=== PATIENT | female | born 1945 | race Caucasian/White ===

== ENCOUNTER 2016-09-28 09:29 | Day surgery (SDC) | payer MEDICARE, OTHER ==
--- NOTE | ~2016-09-28 | EGD ---
EGD REPORT [facility] [address] [place] [address] NAME: BIRGIT ATKINS : [birth year] STATUS : REG [facility]#: [id number] AGE: 71 ADM/REG DATE : 09/28/16 MR#: [id number] REPORT SERV DATE: 09/28/16 DICTATED BY: JACINTO PANIAGUA DATE: 09/28/16 REPORT STATUS : Draft TRANSCRIBED BY: [employer] DATE: 09/28/16 [facility] Patient Name: Birgit Atkins Date of : 1945 Attending MD: JACINTO PANIAGUA, Procedure Date No Time: 09/28/2016 Procedure: ERCP Indications: Abnormal MRCP. Suspected distal bile duct lesion/filling defect Referring MD: Titi Lynn Medicines: Monitored Anesthesia Care Complications: No immediate complications. Estimated blood loss: None Procedure: Pre-Anesthesia Assessment: - ASA Grade Assessment: IV - A patient with severe systemic disease that is a constant threat to life. After obtaining informed consent, the scope was passed under direct vision. Throughout the procedure, the patient's blood pressure, pulse, and oxygen saturations were monitored continuously. The TJF Q180V [id number] was introduced through the mouth, and advanced to the duodenum and used to inject contrast into the bile duct. The ERCP was accomplished without difficulty. The patient tolerated the procedure well. Findings: The major papilla was flat. The bile duct was deeply cannulated with the short-nosed traction sphincterotome. Contrast was injected. I personally interpreted the bile duct images. Ductal flow of contrast was adequate. The main bile duct was diffusely dilated. The largest diameter was 12 mm. Biliary sphincterotomy was made with a traction (standard) sphincterotome using ERBE electrocautery. There was no post-sphincterotomy bleeding. The biliary tree was swept with a 9 mm balloon and 12 mm balloon starting at the upper third of the main bile duct. Nothing was found. Impression: - The major papilla appeared to be flat. - The entire main bile duct was dilated. Recommendation: - Return to previous diet. - Continue present medications. - Would follow clinically with LFT's assuming FNA negative. Suspect benign lesion. Procedure Code(s): --- Professional --- 68960, Endoscopic retrograde cholangiopancreatography EGD REPORT [address] 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 All rights reserved. The codes documented in this report are preliminary and upon incinerator plant general supervisor review may be revised to meet current compliance requirements. JACINTO PANIAGUA, 09/28/2016 1:40 PM Number of Addenda: 0 Note Initiated On: 09/28/2016 1:11 PM Scope Withdrawal Time 0 hours 0 minutes 0 seconds
--- NOTE | ~2016-09-28 | EGD ---
EGD REPORT [facility] [address] [place] [address] NAME: BIRGIT HAN : [birth year] STATUS : REG [facility]#: [id number] AGE: 71 ADM/REG DATE : 09/28/16 MR#: [id number] REPORT SERV DATE: 09/28/16 DICTATED BY: JACINTO PANIAGUA DATE: 09/28/16 REPORT STATUS : Draft TRANSCRIBED BY: [employer] DATE: 09/28/16 [facility] Patient Name: Birgit Han Date of : 1945 Attending MD: JACINTO PANIAGUA, Procedure Date No Time: 09/28/2016 Procedure: Upper EUS Indications: Suspected mass at the ampulla/papilla on MRCP Referring MD: Titi Lynn Complications: No immediate complications. Estimated blood loss: None. Procedure: Pre-Anesthesia Assessment: - ASA Grade Assessment: IV - A patient with severe systemic disease that is a constant threat to life. After obtaining informed consent, the endoscope was passed under direct vision. Throughout the procedure, the patient's blood pressure, pulse, and oxygen saturations were monitored continuously. The Endoscope was introduced through the mouth, and advanced to the second part of duodenum. Findings: Endosonographic Finding : An oval intramural (subepithelial) lesion was found in the ampulla/distal CBD. The lesion was hypoechoic. It measured 19 by 9 mm. Endosonographically, the lesion appeared to originate from within the bile duct or adjacent to the bile duct. The outer margins were well defined. Fine needle aspiration was performed. Color Doppler imaging was utilized prior to needle puncture to confirm a lack of significant vascular structures within the needle path. Six passes were made with the 22 gauge needle. Final cytology results are pending. There was no sign of significant endosonographic abnormality in the common bile duct. The pancreatic duct had a normal endosonographic appearance in the entire pancreas. The pancreatic duct measured up to 2.6 mm in diameter. No lymphadenopathy seen. There was no sign of significant endosonographic abnormality in the examined duodenum. Endosonographic images of the stomach were unremarkable. There was no sign of significant endosonographic abnormality in the esophagus. Impression: - An intramural (subepithelial) lesion was found in the ampulla. The lesion appeared to originate from within the intramural wall, but the wall layer could not be determined. The diagnosis is adenocarcinoma. EGD REPORT [address] [address] NAME: BIRGIT HAN : [birth year] [place]US : [place] [facility]#: [id number] AGE: 71 ADM/REG DATE : 09/28/16 MR#: [id number] REPORT SERV DATE: 09/28/16 DICTATED BY: JACINTO PANIAGUA DATE: 09/28/16 REPORT STATUS : Draft TRANSCRIBED BY: [employer] DATE: 09/28/16 - There was no sign of significant pathology in the common bile duct. - The pancreatic duct had a normal endosonographic appearance in the entire pancreas. The pancreatic duct measured up to 2.6 mm in diameter. - There was no sign of significant pathology in the examined duodenum. - Endosonographic images of the stomach were unremarkable. - There was no sign of significant pathology in the esophagus. Recommendation: - Return to previous diet. - Continue present medications. - Await cytology results. Given appearance suspicion relatively low for concerning lesion. Procedure Code(s): --- Professional --- 20487, Esophagogastroduodenoscopy, flexible, transoral; with transendoscopic ultrasound-guided intramural or transmural fine needle aspiration/biopsy(s) (includes endoscopic ultrasound examination of the esophagus, stomach, and either the duodenum or a surgically altered stomach where the jejunum is examined distal to the anastomosis) Diagnosis Code(s): --- Professional --- C24.1, Malignant neoplasm of ampulla of Vater R93.2, Abnormal findings on diagnostic imaging of liver and biliary tract CPT copyright 2013 [employer]. All rights reserved. The codes documented in this report are preliminary and upon restaurant worker review may be revised to meet current compliance requirements. JACINTO PANIAGUA, 09/28/2016 1:37 PM Number of Addenda: 0 Note Initiated On: 09/28/2016 12:27 PM Scope Withdrawal Time 0 hours 0 minutes 0 seconds [address] [place] [address]
[~2016-09-28 09:29] MED LIST: BC ARTHRITIS P1 EACH PO
[2016-09-28 10:14] LABS: BUN (BLOOD UREA NITROGEN) 16 MG/DL (6-23); CALCIUM, SERUM 8.6 MG/DL (8.5-10.4); CHLORIDE, SERUM 111 MMOL/L (96-112); CO2 (CARBON DIOXIDE) 23 MMOL/L (24-34); GFR AFRICAN AMERICAN 102 ML/MIN (>=60); GFR NON AFRICAN AMERICAN 88 ML/MIN (>=60); GLUCOSE, SERUM 74 MG/DL (60-99); POTASSIUM, SERUM 3.9 MMOL/L (3.5-5.3); SODIUM, SERUM 143 MMOL/L (135-148)
== END 2016-09-28 23:59 | disposition home or self-care (01) ==
LOC: DMU 09:29
PROVIDERS: Anesthesiology; Internal Medicine Gastroenterology
PROC: 0F798ZZ Dilation of Common Bile Duct, Via Natural or Artificial Opening Endoscopic (ICD-10-PCS; principal; 2016-09-28 11:00)
PROC: 0DB98ZX Excision of Duodenum, Via Natural or Artificial Opening Endoscopic, Diagnostic (ICD-10-PCS; 2016-09-28 11:00)
PROC: BD49ZZZ Ultrasonography of Duodenum (ICD-10-PCS; 2016-09-28 11:00)
DX: K83.9 Disease of biliary tract, unspecified (principal); Q44.0 Agenesis, aplasia and hypoplasia of gallbladder; Q44.1 Other congenital malformations of gallbladder; Q44.4 Choledochal cyst; Q44.5 Other congenital malformations of bile ducts; Q44.7 Other congenital malformations of liver; I11.0 Hypertensive heart disease with heart failure; F32.9 Major depressive disorder, single episode, unspecified; I50.33 Acute on chronic diastolic (congestive) heart failure; G89.29 Other chronic pain; J96.01 Acute respiratory failure with hypoxia; M19.90 Unspecified osteoarthritis, unspecified site; M54.5 Low back pain; F17.210 Nicotine dependence, cigarettes, uncomplicated; Z79.82 Long term (current) use of aspirin; Z98.890 Other specified postprocedural states
CPT/HCPCS: 74330; 80048; 88173; 88305; C1769; J2370; J2405; J2550; J2710; J3010; Q9967

== ENCOUNTER 2016-10-20 10:49 | Emergency (ER) | payer MEDICARE, OTHER ==
--- NOTE | ~2016-10-20 | CN ---
Consultation Report [facility] [address] [place]. [address] NAME: BIRGIT ATKINS : [birth year] STATUS : REG ER PAT#: [id number] AGE: 71 ADM/REG DATE : 10/20/16 MR#: [id number] REPORT SERV DATE: 10/20/16 DICTATED BY: LOBITO HICKMAN DATE: 10/20/16 REPORT STATUS : Draft TRANSCRIBED BY: [employer] DATE: 10/20/16 CONSULTATION DATE OF CONSULTATION: 10/20/2016 CHIEF COMPLAINT: Cough. HISTORY OF PRESENT ILLNESS: The patient is a 71-year-old white female, who presented to [facility] emergency room with complaints of cough, this has been going on for the last seven months. She also complained of back pain, which has been going on for the last two years. She has had spinal fusion in 1990 and she says that she is having difficulty walking, where she was walking using a walker, but now she is having some difficulty pushing off her hands, however she has not been taking any pain medication nor has she been treated for her back pain. She denies any fevers or chills. She says sometime back, she did have fever. She was treated for pneumonia at [facility] twice this year. She has not had a productive cough. She denies any other constitutional symptoms. REVIEW OF SYSTEMS: Otherwise, negative. PAST MEDICAL HISTORY: She claims to have chronic back pain. She claims to have aneurysm in her brain that has been followed, somewhere in [place], [place]. She has no history of hypertension, diabetes. She does not have lung disease, but according to her history, I would think she would have COPD. PAST SURGICAL HISTORY: Significant for spinal fusion and carpal tunnel syndrome. ALLERGIES: NO KNOWN DRUG ALLERGIES. HOME MEDICATIONS: Aspirin. SOCIAL HISTORY: She has been a smoker, one pack per day since she was age [age], that would give her a sixty plus pack per year smoking history. She was a heavy drinker, quit three months ago. She says now she occasionally drinks beer. She was drinking two pints of vodka per day. She denies any illicit substance abuse. FAMILY HISTORY: Reviewed with the patient, but noncontributory for this encounter. PHYSICAL EXAMINATION: GENERAL: White female, lying on a gurney, appears to be in no obvious respiratory distress. She is awake, alert. She is oriented. VITAL SIGNS: Blood pressure 140/85, temp is 98.7, pulse is 84, saturation of 94% on room air. HEENT: Head is normocephalic, atraumatic. Pupils are equal, round, and reactive to light. Consultation Report [facility] [address] [place]. [address] NAME: BIRGIT ATKINS : [birth year] STATUS : REG ER PAT#: [id number] AGE: 71 ADM/REG DATE : 10/20/16 MR#: [id number] REPORT SERV DATE: 10/20/16 DICTATED BY: LOBITO HICKMAN DATE: 10/20/16 REPORT STATUS : Draft TRANSCRIBED BY: GARRY DATE: 10/20/16 Extraocular muscles are intact. Sclerae anicteric. Conjunctivae normal. Oropharynx without lesion. Tongue protrusion midline. Uvula midline. NECK: Supple. No jugular venous distention. No carotid bruits or thyromegaly is appreciated. No lymphadenopathy in the neck is palpable. HEART: Regular rate and rhythm. No murmurs, rubs, or gallops are heard. PMI nondisplaced. LUNGS: Mild expiratory wheezing. No rales, rhonchi, or evidence of any focal consolidation. ABDOMEN: Morbidly obese, soft, nontender, good bowel sounds. No rebound, guarding, or organomegaly. EXTREMITIES: Without cyanosis, clubbing, or edema. Strength is equal and symmetrical in both lower extremities. Deep tendon reflexes are 2+. Sensory exam seems to be grossly intact as well. The patient is able to sit up and swing her legs over on the side of the stretcher. She does complain of some back pain when she does that. LABORATORIES: Electrolyte panel: Sodium 134, potassium 4.0, chloride 100, bicarb 25, BUN 4, creatinine 0.61, glucose of 77. Liver function studies are normal. White count is 5.1, hemoglobin of 14.1, hematocrit of 41, platelet count is 327,000, no left shift. Urinalysis is normal. IMAGING: Chest x-ray, PA and lateral, right lower lobe pneumonia. CTA of the chest, mild chronic changes of COPD with minimal right lower lobe infiltrate. Aorta normal in diameter. Heart size normal with no evidence of pericardial effusion. No axillary lymphadenopathy or chest wall masses are seen. Visualized portions of the upper abdomen were unremarkable. IMPRESSION: 1. Mild pneumonia. 2. Most likely chronic obstructive pulmonary disease. 3. Chronic back pain due to osteoarthritis and prior spinal fusion. 4. History of spinal stenosis and fusion. PLAN: The patient will be given p.o. steroids, p.o. antibiotics, albuterol, and Percocet for the above medical problems. She will follow up with the primary care physician. She was advised to quit smoking and she can be discharged from the emergency room. BARB/GARRY Lobito Hickman M.D. / [id number]
[2016-10-20 11:18] LABS: BASOPHILS 0.8 %; BASOPHILS ABSOLUTE 0.04 10/3/uL (0.0-0.16); EOSINOPHILS 1.4 %; EOSINOPHILS ABSOLUTE 0.07 10/3/uL (0.0-0.53); ER CBC TAT 0 Hrs 08 Mins; HEMATOCRIT 41.5 % (36.0-48.0); HEMOGLOBIN 14.1 g/dL (12.0-16.0); IMMATURE GRANULOCYTES 0.2 %; IMMATURE GRANULOCYTES ABSOLUTE 0.01 10/3/uL (0.0-0.11); MEAN CORPUSCULAR HEMOGLOB 31.2 pg (26.0-34.0); MEAN CORPUSCULAR VOLUME 91.8 fL (80-100); MEAN PLATELET VOLUME 8.8 fL (9.2-13.0); MONOCYTES 8.4 %; MONOCYTES ABSOLUTE 0.43 10/3/uL (0.21-1.20); NEUTROPHILS 54.2 %; NEUTROPHILS ABSOLUTE 2.79 10/3/uL (2.02-8.40); PLATELET COUNT 327 10/3/uL (150-400); RBC DISTRIBUTION WIDTH 15.8 % (12.0-16.0); RED CELL COUNT 4.52 10/6/uL (4.0-5.6); WHITE BLOOD CELLS 5.1 10/3/uL (4.5-10.5)
[2016-10-20 11:20] LABS: MANUAL DIFF NO %
[2016-10-20 11:28] LABS: ASCORBIC ACID (UR NOT ORDER) NEG (NEG); BILIRUBIN, URINE NEGATIVE (NEG); ER URINALYSIS TAT 0 Hrs 18 Mins; KETONE, URINE NEGATIVE (NEG); LEUKOCYTE ESTERASE(NOT OR NEG (NEG); NITRITE (URINE) NEG (NEG); WBC (NOT ORDERED) (RFLEX) < 1 (0-5)
[2016-10-20 11:31] LABS: A/G RATIO 0.9 (0.7-1.9); ALBUMIN 4.1 G/DL (3.5-5.0); ALKALINE PHOSPHATASE 123 U/L (45-117); CALCIUM, SERUM 9.2 MG/DL (8.5-10.4); CO2 (CARBON DIOXIDE) 25 MMOL/L (24-34); CREATININE 0.61 MG/DL (0.55-1.02); GFR AFRICAN AMERICAN 106 ML/MIN (>=60); GFR NON AFRICAN AMERICAN 92 ML/MIN (>=60); GLOBULIN 4.5 G/DL (2.5-4.1); GLUCOSE, SERUM 77 MG/DL (60-99); SGOT(AST) 19 U/L (5-40); SGPT(ALT) 14 U/L (5-65); TOTAL BILIRUBIN 0.2 MG/DL (0-1.2); TOTAL PROTEIN 8.6 G/DL (6.0-8.5)
[2016-10-20 11:32] LABS: BUN (BLOOD UREA NITROGEN) 4 MG/DL (6-23); CHLORIDE, SERUM 100 MMOL/L (96-112); SODIUM, SERUM 134 MMOL/L (135-148)
[2016-10-20] MEDS ORDERED: BC HEADACHE PO (13:03)
== END 2016-10-20 16:25 | disposition home or self-care (01) ==
LOC: ER 10:49
PROVIDERS: Nurse Practitioner
DX: J18.9 Pneumonia, unspecified organism (principal); R53.1 Weakness; F17.200 Nicotine dependence, unspecified, uncomplicated; Z87.442 Personal history of urinary calculi; Z79.82 Long term (current) use of aspirin
CPT/HCPCS: 71020; 71250; 80053; 81001; 83605; 85025; 87040; 96365; 96366; 96375; 99285; A9270-GY; J0456